=== PATIENT | female | born 1965 | race Caucasian/White ===

== ENCOUNTER → 2021-09-29 08:23 | Outpatient (BNVA) | payer OTHER, SELFPAY | PROVIDERS: PCP Internal Medicine | DX: N31.9 Neuromuscular dysfunction of bladder, unspecified (principal); R33.9 Retention of urine, unspecified | CPT/HCPCS: 51798 ==

== ENCOUNTER 2022-09-23 13:24 | Outpatient (AMB) | payer OTHER, SELFPAY ==
--- NOTE | 2022-09-23 13:21 | MHC.OFFVIS ---
Intake Intake Visit Reasons: OAB- follow up Intake Note: Patient is present for PVR Follow Up Urology Medication: Tolterodine, Tamsulosin Blood Thinner: None Post Void Residual:0 ml Caponizer Required: No Accompanied by: Self / Same As Patient Allergies Sulfa (Sulfonamide Antibiotics) [SULFA(SULFONAMIDE ANTIBIOTICS)] Allergy (Unknown, Verified 04/28/23 13:30) RASH, Chest pain HPI HPI Comments History of Present Illness Details Sharon is a pleasant female. She is a patient of . She is seen for the following urologic conditions - neurogenic bladder Neurogenic bladder Background of multiple sclerosis Overactive bladder PVR 0 Remains on estradiol vaginally Tamsulosin and tolterodine bladder emptying PFSH Medical History Elevated blood pressure reading in office with diagnosis of hypertension Fracture, fibula closed, shaft Hematuria Incomplete emptying of bladder Neurogenic bladder Neurogenic bladder Retention of urine Urgency incontinence Surgical History History of surgery Social History Patient Tobacco Use Status: Never used Tobacco Review of Systems Const Denies chills and Denies fever(s) Card Reports no additional complaints and Denies syncope Resp Denies cough GI Denies abdominal pain and Denies heartburn Reports as per HPI and Denies change in libido Neuro Denies syncope Psych Denies change in libido Endo Denies change in libido Physical Exam Const General: cooperative, healthy appearing, comfortable and no acute distress Orientation/consciousness: patient oriented x3 HEENT Face and sinus: Yes normal facial exam Mouth: moist mucous membranes Neck Neck: Yes normal visual inspection, Yes full ROM and Yes trachea midline Chest Chest palpation & inspection: normal inspection of the chest Resp Effort & Inspection: normal respiratory effort, able to speak in complete sentences and no respiratory distress GI Inspection: Yes normal to inspection Back/Spine/Pelvis Cervical Spine: normal cervical lordosis Thoracic/Lumbar Spine: thoracic and lumbar spine normal to inspection Skin General skin exam: no rashes or lesions noted Neuro General: patient oriented x3, gait normal, tone normal and moves all extremities Extrem General: Yes normal to inspection and Yes capillary refill normal Office Procedures Post Void Residual Post Residual Void Post Void Residual (PVR): 0 19732-Cydu Void Residual by ultrasound Results AMB Urinalysis, Automated UA Leukoctes 15 Lyric/uL Last Edit by Keyonna Cordova on 09/23/22 13:41 UA Nitrite Negative Last Edit by Keyonna Cordova on 09/23/22 13:41 UA Urobilinogen 0 mg/dL Last Edit by Keyonna Cordova on 09/23/22 13:41 UA Protein 15 mg/dL Last Edit by Keyonna Cordova on 09/23/22 13:41 UA pH 5.5 Last Edit by Keyonna Cordova on 09/23/22 13:41 UA Blood 0 Lenin/uL Last Edit by Keyonna Cordova on 09/23/22 13:41 UA Specific [place] 1.030 Last Edit by Keyonna Cordova on 09/23/22 13:41 UA Ketone Negative Last Edit by Keyonna Cordova on 09/23/22 13:41 UA Bilirubin 0 mg/dL Last Edit by Keyonna Cordova on 09/23/22 13:41 UA Glucose 0 mg/dL Last Edit by Keyonna Cordova on 09/23/22 13:41 Results Reviewed Results Reviewed: Laboratory Last Values Urine pH (Auto) 5.5 09/23/22 13:40 Specific [place] (Auto) 1.030 09/23/22 13:40 Urine Protein (Auto) 15 mg/dL 09/23/22 13:40 Glucose (UA)(Auto) 0 mg/dL 09/23/22 13:40 Urine Ketones (Auto) Negative 09/23/22 13:40 Urine Blood (Auto) 0 Lenin/uL 09/23/22 13:40 Urine Nitrite (Auto) Negative 09/23/22 13:40 Urine Bilirubin (Auto) 0 mg/dL 09/23/22 13:40 Urine Urobilinogen (Auto) 0 mg/dL 09/23/22 13:40 Leukocyte Esterase (Auto) 15 Lyric/uL 09/23/22 13:40 Assessment & Plan Assessment & Plan (1) Voiding dysfunction: Code(s): N39.8 - Other specified disorders of urinary system (2) Neurogenic bladder: Code(s): N31.9 - Neuromuscular dysfunction of bladder, unspecified Plan 12 month follow-up Orders: Orders AMB Urinalysis Automated 09/23/22 Z13.9 - Encounter for screening, unspecified AMB Post Void Residual by ultrasound 09/23/22 R33.9 - Retention of urine, unspecified Patient Instructions: Imaging studies, laboratory and physical exam results were discussed and reviewed in detail. No major barriers to patient understanding were identified. An opportunity to ask questions regarding the treatment plan was provided. All questions were answered. The patient expressed understanding and agreement with the above treatment plan. The patient is aware they should contact our office by phone for worsening of their current condition or the appearance of new urologic symptoms. Compliance is encouraged with any medications and followup testing that is ordered. It is a privilege to participate in the urologic care of your patient. If you have any questions or concerns regarding treatment for the above conditions, or other urologic issues, please do not hesitate to contact me. The office telephone contact is [phone]. This note is constructed using voice recognition software. While every effort has been made to ensure accuracy medical office technologist errors may have been included. Yours sincerely, Dr Mauro Reyes MD, NO[facility] - Urology Providers of Expert, Compassionate Care for the Genitourinary System Coding Level of Care Code Est Pt Level 4 (27026) Diagnoses Voiding dysfunction N39.8 Neurogenic bladder N31.9 CPT Codes Post Residual Void - PVR CPT Code: 36092-[facility] Void Residual by ultrasound ([id number])
--- OUTSIDE RECORDS SUMMARY | 2022-09-23 13:25 | XMS_ITS | Continuity of Care Document ---
:1965 Author Organization [facility] Address [address] [place] [address]- Care Team Providers Name Role Phone Ca LANGLEY, Evelyn Castano Primary Care Physician Encounter [facility] Date(s): 06/19/21 - 06/19/[address] [id number] Discharge Disposition: A-D/C Home Attending Physician: Eagle Montesinos MD Admitting Physician: Eagle Montesinos MD Referring Physician: Eagle Montesinos MD Allergies, Adverse Reactions, Alerts Substance Reaction Severity Status sulfa drugs DISORIENTATION Active Immunizations Given and Recorded Vaccine Date Status Refusal Reason SARS-CoV-2 (COVID-19) mRNA-1273 vaccine1 01/27/21 Recorde d SARS-CoV-2 (COVID-19) mRNA-1273 vaccine 01/27/21 Recorded SARS-CoV-2 (COVID-19) mRNA-1273 vaccine2 12/29/20 Recorde d SARS-CoV-2 (COVID-19) mRNA-1273 vaccine 12/29/20 Recorded 1[facility] Comment: [facility]: [facility] Medications atorvastatin 10 mg oral tablet 1 tablet = 10 mg, By Mouth, Daily, # 30 tablet, 0 Refills, Maintenance, 04/01/20 13:03:00 EDT Start Date: 04/01/20 Status: OrderedCalcium 500+D 1 tablet, By Mouth, Daily, 0 Refills, Maintenance, 04/01/20 13:05:00 EDT Start Date: 04/01/20 Status: Ordereddexlansoprazole 60 mg oral delayed release capsule 1 capsule = 60 mg, By Mouth, Daily, # 90 capsule, 2 Refills, Maintenance, 04/23/21 9:42:00 EDT, CR Capsule, [facility]/pharmacy #[id number], Partial fill upon patient request if the prescription is for a schedule II opioid drug., 169, cm, 04/18/21 10:39:00 EDT, He... Start Date: 04/23/21 Status: Orderedlevothyroxine 0.1 mg oral tablet 1 tablet = 100 mcg, By Mouth, Daily, # 30 tablet, 0 Refills, Maintenance, 04/19/17 11:58:08, Tablet Start Date: 04/19/17 Status: OrderedNasonex 50 mcg/inh nasal spray 2 sprays, Nares, Both, Daily, # 17 Gm, 1 Refills, Maintenance, 08/26/17 11:10:03, [place], 2 sprays Nares, Both Daily Start Date: 08/26/17 Status: OrderedoxyCODONE 5 mg oral tablet 5 mg, 1, tablet, By Mouth, Every 6 hours, PRN, for 5 days, # 18 tablet, Refills 0, Tot. Refills 0, Acute 06/24/21 16:13:00 EDT, as needed for pain, 06/19/21 16:13:00 EDT, Route to Pharmacy Electronically, [facility]/pharmacy #[id number], Partial fill upon patient... Start Date: 06/19/21 Stop Date: 06/24/21 Status: Orderedtamsulosin 0.4 mg oral capsule 0.4 mg, 1, capsule, By Mouth, Daily, Refills 0, Maintenance, 08/26/17 10:56:00 Start Date: 08/26/17 Status: Orderedtolterodine 4 mg oral capsule, extended release 1 capsule = 4 mg, By Mouth, Daily, # 30 capsule, 0 Refills, Maintenance, 04/01/20 13:05:00 EDT, CR Capsule Start Date: 04/01/20 Status: OrderedVitamin C 500 mg oral tablet 1 tablet = 500 mg, By Mouth, Daily, # 30 tablet, 0 Refills, Maintenance, 04/01/20 13:06:00 EDT, Tablet Start Date: 04/01/20 Status: Ordered Vital Signs Most recent to oldest 1 2 3 [Reference Range]: Height 170.18 cm 170.18 cm (06/19/21 1:15 PM) (06/06/21 5:28 PM) Weight 76.82 kg 76.82 kg (06/19/21 1:15 PM) (06/06/21 5:28 PM) Oxygen Saturation [94-100 %] 96 % 95 % 91 % (06/19/21 5:45 PM) (06/19/21 5:30 PM) *L* (06/19/21 5:15 PM) Pulse Rate [55-90 bpm] 85 bpm (06/19/21 1:15 PM) Body Mass Index [18.5-24.99] 26.53 26.53 *H* *H* (06/19/21 1:15 PM) (06/06/21 5:28 PM) Blood Pressure [90-138/55-84 133/68 mm Hg 125/64 mm Hg 122 /64 mm Hg mm Hg] (06/19/21 5:45 PM) (06/19/21 5:30 PM) (06/19/21 5:15 P M) Respiratory Rate [16-30 13 br/min 12 br/min 11 br/mi n br/min] *L* *L* *L* (06/19/21 5:45 PM) (06/19/21 5:30 PM) (06/19/21 5:15 P M) Temperature [96.8-100.4 98 DegF 98.3 DegF 98.5 Deg F DegF] (06/19/21 5:45 PM) (06/19/21 4:15 PM) (06/19/21 1:15 P M) Liters per Minute 6 L/min 6 L/min (06/19/21 4:30 PM) (06/19/21 4:15 PM) Mode of Delivery (Oxygen) Room air Room air Room a ir (06/19/21 5:45 PM) (06/19/21 5:30 PM) (06/19/21 5:15 P M) Blood pressure sites Arm, right Arm, right Arm, right (06/19/21 5:45 PM) (06/19/21 4:15 PM) (06/19/21 1:15 P M) Temperature Route Temporal Temporal Temporal (06/19/21 5:45 PM) (06/19/21 4:15 PM) (06/19/21 1:15 P M) Dry Weight 78.4 kg 76.82 kg (06/19/21 1:15 PM) (06/06/21 5:28 PM) Dry Weight Obtained Via Standing scale Patient/family stated (06/19/21 1:15 PM) (06/06/21 5:28 PM)
--- OUTSIDE RECORDS SUMMARY | 2022-09-23 13:25 | XMS_ITS | Continuity of Care Document ---
:1965 Author Organization [facility] Address [address] [place] [address] Drive [address] [place] [address]- Care Team Providers Name Role Phone Ca LANGLEY, Evelyn Castano Primary Care Physician [place] [facility] [place]18[place] - 04/25/[address] [place] [address]- Attending Physician: Eagle Montesinos MD Referring Physician: Celeste LANGLEY, Gisele Wheeler Allergies, Adverse Reactions, Alerts Substance Reaction Severity Status sulfa drugs DISORIENTATION Active Immunizations Given and Recorded Vaccine Date Status Refusal Reason SARS-CoV-2 (COVID-19) mRNA-1273 vaccine1 01/27/21 Recorde d SARS-CoV-2 (COVID-19) mRNA-1273 vaccine 01/27/21 Recorded SARS-CoV-2 (COVID-19) mRNA-1273 vaccine2 12/29/20 Recorde d SARS-CoV-2 (COVID-19) mRNA-1273 vaccine 12/29/20 Recorded 1Result Comment[facility]: [facility] Medications atorvastatin 10 mg oral tablet 1 tablet = 10 mg, By Mouth, Daily, # 30 tablet, 0 Refills, Maintenance, 04/01/20 13:03:00 EDT Start Date: 04/01/20 Status: OrderedCalcium 500+D 1 tablet, By Mouth, Daily, 0 Refills, Maintenance, 04/01/20 13:05:00 EDT Start Date: 04/01/20 Status: OrderedCarafate 1 gm/10 ml oral suspension 10 mL = 1 Gm, By Mouth, 3 times a day before meals and bedtime, # 1,200 mL, 3 Refills, Maintenance, 04/23/21 14:34:00 EDT, [facility]/pharmacy #[id number], Partial fill upon patient request if the prescription is for a schedule II opioid drug., 170.1, cm, 04/01/20... Start Date: 01/31/21 Status: Ordereddexlansoprazole 60 mg oral delayed release capsule 1 capsule = 60 mg, By Mouth, Daily, # 90 capsule, 2 Refills, Maintenance, 04/23/21 9:42:00 EDT, CR Capsule, [facility]/pharmacy #[id number], Partial fill upon patient request if the prescription is for a schedule II opioid drug., 169, cm, 04/18/21 10:39:00 EDT, He... Start Date: 04/23/21 Status: Orderedfamotidine 40 mg oral tablet 1 tablet = 40 mg, By Mouth, Daily at bedtime, # 90 tablet, 3 Refills, Maintenance, 02/20/20 16:08:00EDT, Tablet, [facility]/pharmacy #[id number] Start Date: 02/20/20 Status: Orderedhyoscyamine 0.125 mg sublingual tablet 1 tablet = 0.125 mg, Sublingual, Every 4 hours, # 30 tablet, 0 Refills, Maintenance, 04/16/20 14:15:00 EDT, Tablet, [facility]/pharmacy #[id number], 170.1, cm, 04/01/20 13:08:00 EDT, Height Start Date: 04/16/20 Status: Orderedlevothyroxine 0.1 mg oral tablet 1 tablet = 100 mcg, By Mouth, Daily, # 30 tablet, 0 Refills, Maintenance, 04/19/17 11:58:08, Tablet Start Date: 04/19/17 Status: OrderedNasonex 50 mcg/inh nasal spray 2 sprays, Nares, Both, Daily, # 17 Gm, 1 Refills, Maintenance, 08/26/17 11:10:03, [place], 2 sprays Nares, Both Daily Start Date: 08/26/17 Status: Orderedomeprazole 40 mg oral enteric coated capsule 1 capsule = 40 mg, By Mouth, Daily, # 30 capsule, 0 Refills, Maintenance, 04/01/20 13:04:00 EDT, EC Capsule Start Date: 04/01/20 Status: Orderedtamsulosin 0.4 mg oral capsule 0.4 mg, 1, capsule, By Mouth, Daily, Refills 0, Maintenance, 08/26/17 10:56:00 Start Date: 08/26/17 Status: Orderedtolterodine 4 mg oral capsule, extended release 1 capsule = 4 mg, By Mouth, Daily, # 30 capsule, 0 Refills, Maintenance, 04/01/20 13:05:00 EDT, CR Capsule Start Date: 04/01/20 Status: OrderedVitamin B12 1 tablet, By Mouth, Daily, 0 Refills, Maintenance, 04/01/20 13:05:00 EDT Start Date: 04/01/20 Status: OrderedVitamin C 500 mg oral tablet 1 tablet = 500 mg, By Mouth, Daily, # 30 tablet, 0 Refills, Maintenance, 04/01/20 13:06:00 EDT, Tablet Start Date: 04/01/20 Status: Ordered Vital Signs Most recent to oldest [Reference Range]: 1 Height 169 cm (04/18/21 10:39 AM) Weight 78.3 kg (04/18/21 10:39 AM) Pulse Rate [55-90 bpm] 93 bpm *H* (04/18/21 10:39 AM) Body Mass Index [18.5-24.99] 27.42 *H* (04/18/21 10:39 AM) Blood Pressure [90-138/55-84 mm Hg] 154/87 mm Hg *H* (04/18/21 10:39 AM) Respiratory Rate [16-30 br/min] 16 br/min (04/18/21 10:39 AM) Temperature [96.8-100.4 DegF] 98.9 DegF (04/18/21 10:39 AM) Blood pressure sites Arm, right (04/18/21 10:39 AM) Temperature Route Temporal (04/18/21 10:39 AM) Weight Obtained Via Standing scale (04/18/21 10:39 AM)
--- OUTSIDE RECORDS SUMMARY | 2022-09-23 13:25 | XMS_ITS | Continuity of Care Document ---
:1965 Author Organization [facility] Address [address] [place] [address]- Care Team Providers Name Role Phone Not on Staff, PCP Primary Care Physician Unavailable Encounter [facility] [place] Date(s): 02/27/21 - 03/29/[address] [address]- Attending Physician: Verito Pate Admitting Physician: AdmVerito bruno Referring Physician: AdmtrVerito Allergies, Adverse Reactions, Alerts Substance Reaction Severity Status sulfa drugs DISORIENTATION Active Immunizations Given and Recorded Vaccine Date Status Refusal Reason SARS-CoV-2 (COVID-19) mRNA-1273 vaccine1 01/27/21 Recorde d SARS-CoV-2 (COVID-19) mRNA-1273 vaccine 01/27/21 Recorded SARS-CoV-2 (COVID-19) mRNA-1273 vaccine2 12/29/20 Recorde d SARS-CoV-2 (COVID-19) mRNA-1273 vaccine 12/29/20 Recorded 1Result Comment: [facility] 4882Result Comment: [facility] Medications atorvastatin 10 mg oral tablet 1 [...] bedtime, # 1,200 mL, 3 Refills, Maintenance, 01/31/21 14:34:00 EDT, [facility]/pharmacy #[id number], Partial fill upon patient request if the prescription is for a schedule II opioid drug., 170.1, cm, 04/01/20... Start Date: 01/31/21 Status: Ordereddexlansoprazole 60 mg oral delayed release capsule 1 capsule = 60 mg, By Mouth, Daily, # 30 capsule, 4 Refills, Maintenance, 02/18/21 12:10:00 EDT, CR Capsule, [facility]/pharmacy #[id number], Partial fill upon patient request if the prescription is for a schedule II opioid drug., 170.1, cm, 04/01/20 13:08:00 EDT,... Start Date: 02/18/21 Status: Ordereddiclofenac sodium 75 mg oral delayed release tablet 1 tablet = 75 mg, By Mouth, 2 times a day, for 14 days, # 28 tablet, 0 Refills, Acute 04/07/21 17:00:00 EDT, 03/24/21 17:00:00 EDT, EC Tablet, [facility]/pharmacy #[id number], Partial fill upon patient request if the prescription is for a schedule II opioid drug.,... Start Date: 03/24/21 Stop Date: 04/07/21 Status: Orderedfamotidine 40 mg oral tablet 1 tablet = 40 mg, By Mouth, Daily at bedtime, # 90 tablet, 3 Refills, Maintenance, 02/20/20 16:08:00EDT, Tablet, [facility]/pharmacy #[id number] Start Date: 02/20/20 Status: Orderedhyoscyamine 0.125 mg sublingual tablet 1 tablet = 0.125 mg, Sublingual, Every 4 hours, # 30 tablet, 0 Refills, Maintenance, 04/16/20 14:15:00 EDT, Tablet, [facility]/pharmacy #[id number], 170.1, cm, 04/01/20 13:08:00 EDT, Height Start Date: 04/16/20 Status: Orderedlevothyroxine 0.1 mg oral tablet 1 tablet = 100 mcg, By Mouth, Daily, # 30 tablet, 0 Refills, Maintenance, 04/19/17 11:58:08, Tablet Start Date: 04/19/17 Status: OrderedNasonex 50 mcg/inh nasal spray 2 sprays, Nares, Both, Daily, # 17 Gm, 1 Refills, Maintenance, 08/26/17 11:10:03, [place], 2 sprays Nares, Both Daily Start Date: [...]
--- OUTSIDE RECORDS SUMMARY | 2022-09-23 13:25 | XMS_ITS | Continuity of Care Document ---
:1965 Author Organization [facility] Address Unavailable , Care Team Providers Name Role Phone Evelyn Penaloza MD Primary Care Physician [place] [facility] [place]/21 [facility] Encounter Diagnosis Symptomatic cholelithiasis (Discharge Diagnosis) - 07/04/21 Postop check (Discharge Diagnosis) - 07/04/21 Attending Physician: Benjie Hopson Referring Physician: Evelyn Peanloza MD Allergies, Adverse Reactions, Alerts Substance Reaction Severity Status sulfa drugs DISORIENTATION Active Immunizations Given and Recorded Vaccine Date Status Refusal Reason SARS-CoV-2 (COVID-19) mRNA-1273 vaccine1 01/27/21 Recorde d SARS-CoV-2 (COVID-19) mRNA-1273 vaccine 01/27/21 Recorded SARS-CoV-2 (COVID-19) mRNA-1273 vaccine2 12/29/20 Recorde d SARS-CoV-2 (COVID-19) mRNA-1273 vaccine 12/29/20 Recorded 1[facility] Medications atorvastatin 10 mg oral tablet [...] Refills, Maintenance, 04/23/21 9:42:00 EDT, CR Capsule, [facility]/pharmacy #[id number], Partial fill upon patient request if the [...] 17 Gm, 1 Refills, Maintenance, 08/26/17 11:10:03, [place], 2 sprays Nares, Both Daily Start Date: 08/26/17 Status: Orderedtamsulosin 0.4 mg oral capsule 0.4 [...] EDT, Tablet Start Date: 04/01/20 Status: Ordered Problem List Diagnosis Diagnosis Type Effective Dates Health Clinical Infor [facility] Status Service Symptomatic Discharge 07/04/21 cholelithiasis Diagnosis Postop check Discharge 07/04/21 Diagnosis Vital Signs Most recent to oldest [Reference Range]: 1 Height 170.18 cm (07/04/21 1:12 PM) Weight 77.4 kg (07/04/21 1:12 PM) Pulse Rate [55-90 bpm] 87 bpm (07/04/21 1:12 PM) Body Mass Index [18.5-24.99] 26.73 *H* (07/04/21 1:12 PM) Blood Pressure [90-138/55-84 mm Hg] 127/79 mm Hg (07/04/21 1:12 PM) Temperature [96.8-100.4 DegF] 96.5 DegF *L* (07/04/21 1:12 PM) Blood pressure sites Arm, left (07/04/21 1:12 PM) Temperature Route Temporal (07/04/21 1:12 PM) Weight Obtained Via Standing scale (07/04/21 1:12 PM)
--- OUTSIDE RECORDS SUMMARY | 2022-09-23 13:25 | XMS_ITS | Continuity of Care Document ---
:1965 Author Organization [facility] Address [address] [place] [address]- Care Team Providers Name Role Phone Misael LANGLEY, Blayne Pagan Primary Care Physician [place] [facility] [place] 11/[place]/[address] [address] [facility] Attending Physician: Evelyn Penaloza MD Allergies, Adverse Reactions, Alerts Substance Reaction Severity Status sulfa drugs DISORIENTATION Active Medications Copaxone Subcutaneous Infusion, Daily, 0 Refills, Maintenance, 04/19/17 11:57:48 Start Date: 04/19/17 Status: Orderedlevothyroxine 0.1 mg oral tablet 1 tablet = 100 mcg, By Mouth, Daily, # 30 tablet, 0 Refills, Maintenance, 04/19/17 11:58:08, Tablet Start Date: 04/19/17 Status: OrderedNasonex 50 mcg/inh nasal spray 2 sprays, Nares, Both, Daily, # 17 Gm, 1 Refills, Maintenance, 08/26/17 11:10:03, [place], 2 sprays Nares, Both Daily Start Date: 08/26/17 Status: Orderedtamsulosin 0.4 mg oral capsule 0.4 mg, 1, capsule, By Mouth, Daily, Refills 0, Maintenance, 08/26/17 10:56:00 Start Date: 08/26/17 Status: Ordered
--- OUTSIDE RECORDS SUMMARY | 2022-09-23 13:25 | XMS_ITS | Continuity of Care Document ---
:1965 Author Organization [facility] Address [address] [place] [address]- Care Team Providers Name Role Phone Blayne Douglas MD [id number] - 11[facility]07[facility] [address] Attending Physician: Blayne Douglas MD Admitting Physician: Blayne Douglas MD Referring Physician: Blayne Douglas MD Allergies, Adverse Reactions, Alerts Substance Reaction Severity Status sulfa drugs DISORIENTATION Active Medications atorvastatin 10 mg oral tablet 1 tablet = 10 mg, By Mouth, Daily, # 30 tablet, 0 Refills, Maintenance, 04/01/20 13:03:00 EDT Start Date: 04/01/20 Status: OrderedCalcium 500+D 1 tablet, By Mouth, Daily, 0 Refills, Maintenance, 04/01/20 13:05:00 EDT Start Date: 04/01/20 Status: Orderedfamotidine 40 mg oral tablet 1 tablet = 40 mg, By Mouth, Daily at bedtime, # 90 tablet, 3 Refills, Maintenance, 02/20/20 16:08:00EDT, Tablet, [facility]/pharmacy #[id number] Start Date: 02/20/20 Status: Orderedhyoscyamine 0.125 mg sublingual tablet 1 tablet = 0.125 mg, Sublingual, Every 4 hours, # 30 tablet, 0 Refills, Maintenance, 04/16/20 14:15:00 EDT, Tablet, [facility]/pharmacy #[id number], 170.1, cm, 04/01/20 13:08:00 EDT, Height Start Date: 04/16/20 Status: Orderedlevothyroxine 0.1 mg oral tablet 1 tablet = 100 mcg, By Mouth, Daily, # 30 tablet, 0 Refills, Maintenance, 04/19/17 11:58:08, Tablet Start Date: 04/19/17 Status: OrderedNasonex 50 mcg/inh nasal spray 2 sprays, Nares, Both, Daily, # 17 Gm, 1 Refills, Maintenance, 08/26/17 11:10:03, [place], 2 sprays Nares, Both Daily Start Date: [...]
--- OUTSIDE RECORDS SUMMARY | 2022-09-23 13:25 | XMS_ITS | Continuity of Care Document ---
:1965 Author Organization [facility] Address [address] [place] [address]- Care Team Providers Name Role Phone Blayne Douglas MD Primary Care Physician Encounter [facility] [place] Date(s): 07/17/20 - 08/16/20 [facility] [address] [place] [address]- Allergies, Adverse Reactions, Alerts Substance Reaction Severity [...] tablet, 3 Refills, Maintenance, 02/20/20 16:08:00EDT, Tablet, [facility]/pharmacy #[id number] Start Date: 02/20/20 Status: Orderedhyoscyamine 0.125 mg sublingual tablet 1 tablet = 0.125 mg, Sublingual, Every 4 hours, # 30 tablet, 0 Refills, Maintenance, 04/16/20 14:15:00 EDT, Tablet, [facility]/pharmacy #[id number], 170.1, cm, 04/01/20 13:08:00 EDT, Height Start Date: 04/16/20 Status: Orderedlevothyroxine 0.1 mg oral tablet 1 tablet = 100 mcg, By Mouth, Daily, # 30 tablet, 0 Refills, Maintenance, 04/19/17 11:58:08, Tablet Start Date: 04/19/17 Status: OrderedNasonex 50 mcg/inh nasal spray 2 sprays, Nares, Both, Daily, # 17 Gm, 1 Refills, Maintenance, 08/26/17 11:10:03, [place], 2 sprays Nares, Both Daily Start Date: [...]
--- OUTSIDE RECORDS SUMMARY | 2022-09-23 13:25 | XMS_ITS | Continuity of Care Document ---
:1965 Author Organization [facility] Address [address] [place] [phone]- Care Team Providers Name Role Phone Blayne Douglas MD Primary Care Physician Encounter [facility] Date(s): 07/17/20 - 08/16/20 [facility] [address] [place] [address]- Attending Physician: Verito Pate Admitting Physician: Verito Pate Referring Physician: AdmtrVerito Allergies, Adverse Reactions, Alerts [...] tablet, 3 Refills, Maintenance, 02/20/20 16:08:00EDT, Tablet, [facility]/pharmacy #[id number] Start Date: 02/20/20 Status: Orderedhyoscyamine 0.125 mg sublingual tablet 1 tablet = 0.125 mg, Sublingual, Every 4 hours, # 30 tablet, 0 Refills, Maintenance, 04/16/20 14:15:00 EDT, Tablet, [facility]/pharmacy #[id number], 170.1, cm, 04/01/20 13:08:00 EDT, Height Start Date: 04/16/20 Status: Orderedlevothyroxine 0.1 mg oral tablet 1 tablet = 100 mcg, By Mouth, Daily, # 30 tablet, 0 Refills, Maintenance, 04/19/17 11:58:08, Tablet Start Date: 04/19/17 Status: OrderedNasonex 50 mcg/inh nasal spray 2 sprays, Nares, Both, Daily, # 17 Gm, 1 Refills, Maintenance, 08/26/17 11:10:03, [place], 2 sprays Nares, Both Daily Start Date: [...]
--- OUTSIDE RECORDS SUMMARY | 2022-09-23 13:25 | XMS_ITS | Continuity of Care Document ---
:1965 Author Organization [facility] Address [address] [place] [address]- Care Team Providers Name Role Phone Blayne Douglas MD Primary Care Physician [place] [facility] [place] [id number] Date(s): 02/12/20 - 03/13/20 [facility] [address] [place] [address]- [facility] Attending Physician: Verito Pate Admitting Physician: AdmVerito bruno Referring Physician: AdmtrVerito Allergies, Adverse Reactions, Alerts Substance Reaction Severity Status sulfa drugs DISORIENTATION Active Medications [place] Subcutaneous Infusion, Daily, 0 Refills, Maintenance, 04/19/17 11:57:48 Start Date: 04/19/17 Status: Orderedfamotidine 40 mg oral tablet 1 tablet = 40 mg, By Mouth, Daily at bedtime, # 90 tablet, 3 Refills, Maintenance, 02/20/20 16:08:00EDT, Tablet, [facility]/pharmacy #[id number] Start Date: 02/20/20 Status: Orderedlevothyroxine 0.1 mg oral tablet 1 tablet = 100 mcg, By Mouth, Daily, # 30 tablet, 0 Refills, Maintenance, 04/19/17 11:58:08, Tablet Start Date: 04/19/17 Status: OrderedNasonex 50 mcg/inh nasal spray 2 sprays, Nares, Both, Daily, # 17 Gm, 1 Refills, Maintenance, 08/26/17 11:10:03, [place], 2 sprays Nares, Both Daily Start Date: 08/26/17 Status: Orderedtamsulosin 0.4 mg oral capsule 0.4 mg, 1, capsule, By Mouth, Daily, Refills 0, Maintenance, 08/26/17 10:56:00 Start Date: 08/26/17 Status: Ordered
--- OUTSIDE RECORDS SUMMARY | 2022-09-23 13:25 | XMS_ITS | Continuity of Care Document ---
:1965 Author Organization [facility] Address [address] [place] [address]- Care Team Providers Name Role Phone Blayne Douglas MD Primary Care Physician [place] [facility] [place] Date(s): 03/17/21 - 04/16/21 [facility] [address] [place] [id number] Allergies, Adverse Reactions, Alerts Substance Reaction Severity Status sulfa drugs DISORIENTATION Active Immunizations Given and Recorded Vaccine Date Status Refusal Reason SARS-CoV-2 (COVID-19) mRNA-1273 vaccine1 01/27/21 Recorde d SARS-CoV-2 (COVID-19) mRNA-1273 vaccine 01/27/21 Recorded SARS-CoV-2 (COVID-19) mRNA-1273 vaccine2 12/29/20 Recorde d SARS-CoV-2 (COVID-19) mRNA-1273 vaccine 12/29/20 Recorded 1Result Comment: PRINCE 4882Result Comment: [facility] Medications atorvastatin 10 mg oral tablet 1 [...] mL, 3 Refills, Maintenance, 01/31/21 14:34:00 EDT, [facility]/pharmacy #[id number], Partial fill upon patient request if the prescription is for a schedule II opioid drug., 170.1, cm, 04/01/20... Start Date: 01/31/21 Status: Ordereddexlansoprazole 60 mg oral delayed release capsule 1 capsule = 60 mg, By Mouth, Daily, # 30 capsule, 4 Refills, Maintenance, 02/18/21 12:10:00 EDT, CR Capsule, [facility]/pharmacy #[id number], Partial fill upon patient request if the prescription is for a schedule II opioid drug., 170.1, cm, 04/01/20 13:08:00 EDT,... Start Date: 02/18/21 Status: Orderedfamotidine 40 mg oral tablet 1 tablet = 40 mg, By Mouth, Daily at bedtime, # 90 tablet, 3 Refills, Maintenance, 02/20/20 16:08:00EDT, Tablet, [facility]/pharmacy #[id number] Start Date: 02/20/20 Status: Orderedhyoscyamine 0.125 mg sublingual tablet 1 tablet = 0.125 mg, Sublingual, Every 4 hours, # 30 tablet, 0 Refills, Maintenance, 04/16/20 14:15:00 EDT, Tablet, [facility]/pharmacy #[id number], 170.1, cm, 04/01/20 13:08:00 EDT, Height Start Date: 04/16/20 Status: Orderedlevothyroxine 0.1 mg oral tablet 1 tablet = 100 mcg, By Mouth, Daily, # 30 tablet, 0 Refills, Maintenance, 04/19/17 11:58:08, Tablet Start Date: 04/19/17 Status: OrderedNasonex 50 mcg/inh nasal spray 2 sprays, Nares, Both, Daily, # 17 Gm, 1 Refills, Maintenance, 08/26/17 11:10:03, [place], 2 sprays Nares, Both Daily Start Date: [...]
--- OUTSIDE RECORDS SUMMARY | 2022-09-23 13:25 | XMS_ITS | Continuity of Care Document ---
:1965 Author Organization [facility] Address Unavailable , Care Team Providers Name Role Phone aC LANGLEY, Evelyn Castano Primary Care Physician Encounter [facility] Date(s): 07/04/21 - 08/03/21 [facility] Attending Physician: Verito Pate Admitting Physician: AdmVerito [...] Recorded 1Result Comment: PRINCE 4882Result Comment: [facility] Medications atorvastatin 10 mg oral tablet 1 [...] Refills, Maintenance, 04/23/21 9:42:00 EDT, CR Capsule, [facility]/pharmacy #[id number], Partial fill upon patient request if the [...] 17 Gm, 1 Refills, Maintenance, 08/26/17 11:10:03, [place], 2 sprays Nares, Both Daily Start Date: [...]
--- OUTSIDE RECORDS SUMMARY | 2022-09-23 13:25 | XMS_ITS | Continuity of Care Document ---
:[address] [facility] Address [address] [place] [address]- Care Team Providers Name Role Phone Blayne Douglas MD [id number] - 12[facility]21[facility] [address] Attending Physician: Blayne Douglas MD Admitting Physician: [...] tablet, 3 Refills, Maintenance, 02/20/20 16:08:00EDT, Tablet, [facility]/pharmacy #[id number] Start Date: 02/20/20 Status: Orderedhyoscyamine 0.125 mg sublingual tablet 1 tablet = 0.125 mg, Sublingual, Every 4 hours, # 30 tablet, 0 Refills, Maintenance, 04/16/20 14:15:00 EDT, Tablet, [facility]/pharmacy #[id number], 170.1, cm, 04/01/20 13:08:00 EDT, Height Start Date: 04/16/20 Status: Orderedlevothyroxine 0.1 mg oral tablet 1 tablet = 100 mcg, By Mouth, Daily, # 30 tablet, 0 Refills, Maintenance, 04/19/17 11:58:08, Tablet Start Date: 04/19/17 Status: OrderedNasonex 50 mcg/inh nasal spray 2 sprays, Nares, Both, Daily, # 17 Gm, 1 Refills, Maintenance, 08/26/17 11:10:03, [place], 2 sprays Nares, Both Daily Start Date: [...]
--- OUTSIDE RECORDS SUMMARY | 2022-09-23 13:25 | XMS_ITS | Continuity of Care Document ---
:1965 Author Organization Address [address] [place] [address]- Care Team Providers Name Role Phone Not on Staff, PCP Primary Care Physician Unavailable Encounter [facility] [id number] Date(s): 03/24/21 - 03/24/[address] [address]- Discharge Disposition: A-D/C Home Attending Physician: Sheldon Marquez MD Admitting Physician: Sheldon Marquez MD Referring Physician: Not on Staff, Referring MD Allergies, Adverse Reactions, Alerts Substance Reaction Severity Status sulfa drugs DISORIENTATION Active Immunizations Given and Recorded Vaccine Date Status Refusal Reason SARS-CoV-2 (COVID-19) mRNA-1273 vaccine1 01/27/21 Recorde d SARS-CoV-2 (COVID-19) mRNA-1273 vaccine 01/27/21 Recorded SARS-CoV-2 (COVID-19) mRNA-1273 vaccine2 12/29/20 Recorde d SARS-CoV-2 (COVID-19) mRNA-1273 vaccine 12/29/20 Recorded 1Result Comment: PRINCE 4882Result Comment: PR[facility]CE [facility] Medications atorvastatin 10 [...] mL, 3 Refills, Maintenance, 01/31/21 14:34:00 EDT, [facility]/pharmacy #[id number], Partial fill upon patient request if the prescription is for a schedule II opioid drug., 170.1, cm, 04/01/20... Start Date: 01/31/21 Status: Ordereddexlansoprazole 60 mg oral delayed release capsule 1 capsule = 60 mg, By Mouth, Daily, # 30 capsule, 4 Refills, Maintenance, 02/18/21 12:10:00 EDT, CR Capsule, [facility]/pharmacy #[id number], Partial fill upon patient request if the prescription is for a schedule II opioid drug., 170.1, cm, 04/01/20 13:08:00 EDT,... Start Date: 02/18/21 Status: Ordereddiclofenac sodium 75 mg oral delayed release tablet 1 tablet = 75 mg, By Mouth, 2 times a day, for 14 days, # 28 tablet, 0 Refills, Acute 04/07/21 17:00:00 EDT, 03/24/21 17:00:00 EDT, EC Tablet, [facility]/pharmacy #[id number], Partial fill upon patient request if the prescription is for a schedule II opioid drug.,... Start Date: 03/24/21 Stop Date: 04/07/21 Status: Orderedfamotidine 40 mg oral tablet 1 tablet = 40 mg, By Mouth, Daily at bedtime, # 90 tablet, 3 Refills, Maintenance, 02/20/20 16:08:00EDT, Tablet, [facility]/pharmacy #[id number] Start Date: 02/20/20 Status: Orderedhyoscyamine 0.125 mg sublingual tablet 1 tablet = 0.125 mg, Sublingual, Every 4 hours, # 30 tablet, 0 Refills, Maintenance, 04/16/20 14:15:00 EDT, Tablet, [facility]/pharmacy #[id number], 170.1, cm, 04/01/20 13:08:00 EDT, Height Start Date: 04/16/20 Status: Orderedlevothyroxine 0.1 mg oral tablet 1 tablet = 100 mcg, By Mouth, Daily, # 30 tablet, 0 Refills, Maintenance, 04/19/17 11:58:08, Tablet Start Date: 04/19/17 Status: OrderedNasonex 50 mcg/inh nasal spray 2 sprays, Nares, Both, Daily, # 17 Gm, 1 Refills, Maintenance, 08/26/17 11:10:03, [place], 2 sprays Nares, Both Daily Start Date: [...] EDT, Tablet Start Date: 04/01/20 Status: Ordered Results Orders for Microbiology Reports Name Date Urine Culture (URINE CULTURE) 03/24/21 Microbiology Reports TEST:Urine Culture STATUS:Unauthenticated BODY SITE: SOURCE:URINE COLLECTED DATE/TIME:03/24/21 12:33 PMUrine Culture SPECIMEN DESCRIPTION : URINE SPECIAL REQUESTS : NONE Reflexed from [id number] REPORT STATUS : PRELIMINARY REPORT Radiology Reports Exam Date Time Procedure Performing Provider Status 03/24/21 1:02 PM Chest 2 Views Frontal and Lat Azul Feliciano; Auth (Verified) Notes:(Chest 2 Views Frontal and Lat) Reason For Exam: Shortness of Breath RESULT: Chest 2 Views Frontal and Lat Chest 2 Views Frontal and Lat Hx of Present Illness: Pt with left upper abdominal under rib pain since wednesday. Worse with coughingand breathing. denies fever, chills, nausea or vomiting. C o SOB.; Reason: Shortness of Breath; Clinical Question(s): Pneumonia COMPARISON: None. FINDINGS: LINES AND TUBES: None. LUNGS AND PLEURA: Low lung volumes with mild basilar vascular crowding. Lungs are otherwise clear with no consolidation. No pleural effusion. No pneumothorax. HEART, MEDIASTINUM AND MELIZA: Heart is normal in size. Normal upper mediastinal and hilar contour. BONES AND SOFT TISSUES: No acute abnormality. Mild degenerative changes in the shoulders. IMPRESSION: Low lung volumes. Otherwise no acute abnormality. WSN: [id number] Ordering Physician: Sheldon Marquez Dictated By: Ron Roque MD Dictated Date/Time: 03/24/21 1:15 pm Reviewed By: Ron Roque MD Signed By: Ron Roque MD Signed Date/Time: 03/24/21 1:15 pm Transcribed By: JOHN Transcribed Date/Time: 03/24/21 1:11 pm Vital Signs Most recent to oldest 1 2 3 [Reference Range]: Height 169 cm 169 cm 169 cm (03/24/21 4:56 PM) (03/24/21 3:14 PM) (03/24/21 12: 08 PM) Weight 78.7 kg 78.7 kg 78.7 kg (03/24/21 4:56 PM) (03/24/21 3:14 PM) (03/24/21 12: 08 PM) Oxygen Saturation [94-100 %] 100 % 99 % 100 % (03/24/21 4:56 PM) (03/24/21 3:14 PM) (03/24/21 12: 08 PM) Pulse Rate [55-90 bpm] 86 bpm 67 bpm 82 bpm (03/24/21 4:56 PM) (03/24/21 3:14 PM) (03/24/21 12: 08 PM) Body Mass Index [18.5-24.99] 27.56 27.56 *H* *H* (03/24/21 4:56 PM) (03/24/21 3:14 PM) Blood Pressure [90-138/55-84 126/88 mm Hg 111/67 mm Hg 140 /81 mm Hg mm Hg] (03/24/21 4:56 PM) (03/24/21 3:14 PM) *H* (03/24/21 12:08 P M) Respiratory Rate [16-30 18 br/min 16 br/min 18 br/mi n br/min] (03/24/21 4:56 PM) (03/24/21 3:14 PM) (03/24/21 12: 08 PM) Temperature [96.8-100.4 DegF] 95.7 DegF *L* (03/24/21 12:08 PM) Mode of Delivery (Oxygen) Room air Room air Room a ir (03/24/21 4:56 PM) (03/24/21 3:14 PM) (03/24/21 12: 08 PM) Blood pressure sites Arm, left Arm, right Arm, right (03/24/21 4:56 PM) (03/24/21 3:14 PM) (03/24/21 12: 08 PM) Temperature Route Tympanic (03/24/21 12:08 PM) Dry Weight 78.7 kg 78.7 kg 78.7 kg (03/24/21 4:56 PM) (03/24/21 3:14 PM) (03/24/21 12: 08 PM)
--- OUTSIDE RECORDS SUMMARY | 2022-09-23 13:26 | XMS_ITS | Continuity of Care Document ---
:1965 Author Organization [facility] Address [address] [place] [phone]- Care Team Providers Name Role Phone Blayne Douglas MD Primary Care Physician [place] [facility] [place] Date(s): 12/05/20 - 04/15/[address] [address] Discharge Disposition: A-D/C Home Attending Physician: Blayne Douglas MD Admitting Physician: Blayne Douglas MD Referring Physician: Salvador CID, Adamaris Rob Allergies, Adverse Reactions, Alerts Substance Reaction Severity [...] mL, 3 Refills, Maintenance, 04/23/21 14:34:00 EDT, [facility]/pharmacy #[id number], Partial fill upon patient request if the prescription is for a schedule II opioid drug., 170.1, cm, 04/01/20... Start Date: 01/31/21 Status: Ordereddexlansoprazole 60 mg oral delayed release capsule 1 capsule = 60 mg, By Mouth, Daily, # 30 capsule, 4 Refills, Maintenance, 02/18/21 12:10:00 EDT, CR Capsule, [facility]/pharmacy #[id number], Partial fill upon patient request if the prescription is for a schedule II opioid drug., 170.1, cm, 04/01/20 13:08:00 EDT,... Start Date: 02/18/21 Status: Orderedfamotidine 40 mg oral tablet 1 tablet = 40 mg, By Mouth, Daily at bedtime, # 90 tablet, 3 Refills, Maintenance, 02/20/20 16:08:00EDT, Tablet, [facility]/pharmacy #[id number] Start Date: 02/20/20 Status: Orderedhyoscyamine 0.125 mg sublingual tablet 1 tablet = 0.125 mg, Sublingual, Every 4 hours, # 30 tablet, 0 Refills, Maintenance, 04/16/20 14:15:00 EDT, Tablet, [facility]/pharmacy #[id number], 170.1, cm, 04/01/20 13:08:00 EDT, Height Start Date: 04/16/20 Status: Orderedlevothyroxine 0.1 mg oral tablet 1 tablet = 100 mcg, By Mouth, Daily, # 30 tablet, 0 Refills, Maintenance, 04/19/17 11:58:08, Tablet Start Date: 04/19/17 Status: OrderedNasonex 50 mcg/inh nasal spray 2 sprays, Nares, Both, Daily, # 17 Gm, 1 Refills, Maintenance, 08/26/17 11:10:03, [place], 2 sprays Nares, Both Daily Start Date: [...]
--- OUTSIDE RECORDS SUMMARY | 2022-09-23 13:26 | XMS_ITS | Continuity of Care Document ---
:1965 Author Organization [facility] Address [address] [facility], [address] [address]- Care Team Providers Name Role Phone Ca LANGLEY, Evelyn Castano Primary Care Physician Encounter 12/17/21 - 12/24/21 [facility] [address], [address] [address]- Attending Physician: Adamaris Franco CNM Admitting Physician: Adamaris Franco CNM Referring Physician: Adamaris Franco CNM Allergies, Adverse Reactions, Alerts Substance Reaction Severity [...] Refills, Maintenance, 04/23/21 9:42:00 EDT, CR Capsule, [facility]/pharmacy #[id number], Partial fill upon patient request if the prescription is for a schedule II opioid drug., 169, cm, 04/18/21 10:39:00 EDT, Bogdan. Start Date: 04/23/21 Status: Orderedlevothyroxine 0.1 mg oral tablet 1 tablet = 100 mcg, By Mouth, Daily, # 30 tablet, 0 Refills, Maintenance, 04/19/17 11:58:08, Tablet Start Date: 04/19/17 Status: OrderedNasonex 50 mcg/inh nasal spray 2 sprays, Nares, Both, Daily, # 17 Gm, 1 Refills, Maintenance, 08/26/17 11:10:03, [place], 2 sprays Nares, Both Daily Start Date: [...]
== END 2022-09-23 13:56 | disposition home or self-care (01) ==
LOC: HO.HUSH 13:24
PROVIDERS: PCP Internal Medicine; Visit Provider Urology
DX: N39.8 Other specified disorders of urinary system (principal); N31.9 Neuromuscular dysfunction of bladder, unspecified
CPT/HCPCS: 99214

== ENCOUNTER → 2022-09-23 13:24 | Outpatient (BNVA) | payer OTHER, SELFPAY | PROVIDERS: PCP Internal Medicine; Visit Provider Urology | DX: N39.8 Other specified disorders of urinary system (principal); N31.9 Neuromuscular dysfunction of bladder, unspecified | CPT/HCPCS: 51798 ==

== ENCOUNTER 2023-04-28 13:11 | Outpatient (AMB) | payer OTHER, SELFPAY ==
--- NOTE | 2023-04-28 12:40 | A.OFFVIS_ITS ---
Intake Intake Visit Reasons: Recurrent UTI's Intake Note: Patient presents for recurrent uti's Urology Medications: tamsulosin, tolterodine Blood Thinner: none Bladder scan PVR - 56 mL Trade Union Secretary Required: No Accompanied by: Self / Same As Patient Allergies Sulfa (Sulfonamide Antibiotics) [SULFA(SULFONAMIDE ANTIBIOTICS)] Allergy (Unknown, Verified 04/28/23 13:30) RASH, Chest pain HPI HPI Comments History of Present Illness Details Sharon is a 57-year-old female who presents to the clinic today for recurrent UTIs. 04/28/23-- The patient has a significant history for multiple sclerosis. She was last seen in the office on 09/23/[address] Reyes. She is followed for recurrent UTIs. She reports that she has been getting UTIs associated with sexual intercourse. She has had voiding dysfunction including hesitancy and urgency. She has been prescribed tamsulosin and tolterodine in the past. She takes both the medications currently. She has been using Vagifem vaginal suppositories prescribed by her PLASTIC MOULD MAKER. Results reviewed ? UA ? Leukocytes: 2+ . Blood: Negative. Bladder scan PVR - 56 mL Plan: We are going to obtain a kidney and bladder ultrasound. Continue taking tamsulosin and tolterodine. Recommended a trial of low-dose antibiotic to use after intercourse. Prescribed Macrobic 100 mg. Discussed voiding before and after intercourse and following good hygiene. Follow up in 8 weeks via telehealth to review the ultrasound results. [facility] Medical History Elevated blood pressure reading in office with diagnosis of hypertension Fracture, fibula closed, shaft Hematuria Incomplete emptying of bladder Neurogenic bladder Neurogenic bladder Retention of urine Urgency incontinence Surgical History History of surgery Social History Patient Tobacco Use Status: Never used Tobacco Review of Systems Const All systems reviewed & are unremarkable except as noted in HPI and below Reports no additional complaints Eyes Reports no additional complaints ENT Reports no additional complaints Card Denies dyspnea Resp Denies cough and Denies dyspnea GI Reports no additional complaints Reports no additional complaints Musc Reports no additional complaints Skin/Breast Denies rash and Denies unusual bruising Neuro Reports no additional complaints Psych Reports no additional complaints Endo Reports no additional complaints Rodrigo/Lymph Reports no additional complaints Aller/Immun Reports no additional complaints Physical Exam Const General: cooperative, healthy appearing and no acute distress Orientation/consciousness: patient oriented x3 HEENT Head: Yes normal to inspection, Yes normocephalic and Yes atraumatic Eyes Conjunctivae: conjunctivae normal Neck Neck: Yes normal visual inspection and Yes trachea midline Chest Chest palpation & inspection: normal inspection of the chest Resp Effort & Inspection: normal respiratory effort Cardio Rate: regular rate GI Inspection: Yes normal to inspection Skin General skin exam: no rashes or lesions noted Neuro General: patient oriented x3 Extrem General: No edema Psych Appearance: grossly normal Office Procedures Post Void Residual Post Residual Void Post Void Residual (PVR): 56 [id number] Void Residual by ultrasound Results AMB Urinalysis, Automated UA Leukoctes 125 Lyric/uL Last Edit by [employer] on 04/28/23 13:44 UA Nitrite Last Edit by [employer] on 04/28/23 13:44 UA Urobilinogen 0.2 mg/dL Last Edit by [employer] on 04/28/23 13:44 UA Protein 0 mg/dL Last Edit by [employer] on 04/28/23 13:44 UA pH 6.0 Last Edit by [employer] on 04/28/23 13:44 UA Blood 0 Lenin/uL Last Edit by [employer] on 04/28/23 13:44 UA Specific [place] 1.020 Last Edit by [employer] on 04/28/23 13:44 UA Ketone Last Edit by [employer] on 04/28/23 13:44 UA Bilirubin 0 mg/dL Last Edit by [employer] on 04/28/23 13:44 UA Glucose 0 mg/dL Last Edit by [employer] on 04/28/23 13:44 Results Reviewed Results Reviewed: Laboratory Last Values Urine pH (Auto) 6.0 04/28/23 13:32 Specific [place] (Auto) 1.020 04/28/23 13:32 Urine Protein (Auto) 0 mg/dL 04/28/23 13:32 Glucose (UA)(Auto) 0 mg/dL 04/28/23 13:32 Urine Blood (Auto) 0 Lenin/uL 04/28/23 13:32 Urine Bilirubin (Auto) 0 mg/dL 04/28/23 13:32 Urine Urobilinogen (Auto) 0.2 mg/dL 04/28/23 13:32 Leukocyte Esterase (Auto) 125 Lyric/uL 04/28/23 13:32 Assessment & Plan Assessment & Plan (1) Neurogenic bladder: Code(s): N31.9 - Neuromuscular dysfunction of bladder, unspecified (2) Recurrent urinary tract infection: Code(s): N39.0 - Urinary tract infection, site not specified (3) Multiple sclerosis: Code(s): G35 - Multiple sclerosis (4) Voiding dysfunction: Code(s): N39.8 - Other specified disorders of urinary system (5) Vaginal atrophy: Code(s): N95.2 - Postmenopausal atrophic vaginitis Plan We are going to obtain a kidney and bladder ultrasound. Continue taking tamsulosin and tolterodine. Recommended a trial of low-dose antibiotic to use after intercourse. Prescribed Macrobic 100 mg. Discussed voiding before and after intercourse and following good hygiene. Follow up in 8 weeks via telehealth to review the ultrasound results. Orders: Orders US retroperitoneal comp Today N31.9 - Neuromuscular dysfunction of bladder, unspecified, N39.0 - Urinary tract infection, site not specified AMB Urinalysis Automated Today Z13.9 - Encounter for screening, unspecified AMB Post Void Residual by ultrasound Today R33.9 - Retention of urine, unspecified Medications: New nitrofurantoin monohyd/m-cryst 100 mg (Macrobid) must administer with a meal/food 100 mg PO .qhs 30 caps 2RF use after intercourse as directed Patient Instructions: The patient had an opportunity to ask questions regarding treatment plan. All questions were answered. Imaging, Laboratory studies and physical exam results were discussed and reviewed in detail. No major barriers to understanding were identified. The patient expressed understanding and agreement with the above treatment plan. The patient is aware they should contact our office by phone for worsening of their current condition or the appearance of new symptoms. Compliance is encouraged with any medications and followup testing that is ordered. It is a privilege to be allowed the opportunity to participate in the urologic care of your patient. If you have any questions or concerns regarding treatment for the above conditions please do not hesitate to contact me. The office telephone contact is [phone]. This note is constructed in part using voice recognition software. While every effort has been made to ensure accuracy machinist instructor errors may have been included. Yours sincerely, Rashawn Motley MD Coding Level of Care Code Est Pt Level 4 (25482) Diagnoses Neurogenic bladder N31.9 Recurrent urinary tract infection N39.0 Multiple sclerosis G35 Voiding dysfunction N39.8 Vaginal atrophy N95.2 CPT Codes Post Residual Void - PVR CPT Code: 04213-Lxyx Void Residual by ultrasound ([id number])
== END 2023-04-28 14:21 | disposition home or self-care (01) ==
PROVIDERS: PCP Internal Medicine; Visit Provider Urology
DX: N31.9 Neuromuscular dysfunction of bladder, unspecified (principal); N39.0 Urinary tract infection, site not specified; G35 Multiple sclerosis; N39.8 Other specified disorders of urinary system; N95.2 Postmenopausal atrophic vaginitis
CPT/HCPCS: 99214

== ENCOUNTER → 2023-04-28 13:11 | Outpatient (BNVA) | payer OTHER, SELFPAY | PROVIDERS: PCP Internal Medicine; Visit Provider Urology | DX: N39.0 Urinary tract infection, site not specified (principal); R33.9 Retention of urine, unspecified; N31.9 Neuromuscular dysfunction of bladder, unspecified; N39.8 Other specified disorders of urinary system; N95.2 Postmenopausal atrophic vaginitis; G35 Multiple sclerosis; Z79.899 Other long term (current) drug therapy | CPT/HCPCS: 51798 ==

== ENCOUNTER 2023-06-02 09:33 | Outpatient (REF) | payer OTHER, SELFPAY ==
--- NOTE | ~2023-06-02 | US_ITS ---
EXAMINATION: US RETROPERITONEAL COMPLETE (RENAL) CLINICAL INFORMATION: Neuromuscular dysfunction of the bladder, unspecified. COMPARISON: Renal ultrasound 11/29/2018. TECHNIQUE: Real-time imaging of the kidneys and bladder. FINDINGS: RIGHT KIDNEY: 11.5 x 6.0 x 5.8 cm (SAG x AP x TRV). The kidney is normal in size, contour, and echogenicity. Renal cortical thickness is normal. No calculi or focal parenchymal lesions. No hydronephrosis. LEFT KIDNEY: 11.9 x 5.7 x 5.0 cm (SAG x AP x TRV). The kidney is normal in size, contour, and echogenicity. Renal cortical thickness is normal. No calculi or focal parenchymal lesions. No hydronephrosis. BLADDER: Well distended and normal. Bilateral ureteral jets are demonstrated. Prevoid bladder volume is 299 mL. Postvoid bladder volume is 39 mL. US/US retroperitoneal comp IMPRESSION: Unremarkable examination.
== END 2023-06-02 09:34 | disposition home or self-care (01) ==
LOC: HO.US 09:33
PROVIDERS: PCP Internal Medicine; Visit Provider Urology
DX: N31.9 Neuromuscular dysfunction of bladder, unspecified (principal); N39.0 Urinary tract infection, site not specified
CPT/HCPCS: 76770

== ENCOUNTER 2023-06-24 08:32 | Outpatient (AMB) | payer OTHER, SELFPAY ==
--- NOTE | 2023-06-24 08:32 | A.OFFVIS_ITS ---
Intake Intake Visit Reasons: 8w/US Intake Note: Patient presents today for a follow-up on US Results, completed on 06/02/2023 Meds- Estradiol Allergies to Antibiotic- Sulfa Blood Thinner- None Graves Registration Specialist Required: No Allergies Sulfa (Sulfonamide Antibiotics) [SULFA(SULFONAMIDE ANTIBIOTICS)] Allergy (Unknown, Verified 06/24/23 08:33) RASH, Chest pain HPI HPI Comments History of Present Illness Details Sharon is a 57-year-old female who presents today via Tele-health visit for a follow-up. 06/24/2023? She is followed today for US results. She was last seen by me on 04/28/2023 for recurrent urinary tract infections. Kidney and bladder ultrasound was ordered at that time. The patient was advised to continue taking tamsulosin and tolterodine, she was recommended a trial of low-dose antibiotic to use after intercourse at that time. Macrobic 100 mg was prescribed, and she was advised to follow up in 8 weeks via telehealth to review the ultrasound results during that time. Patient states that toady she was tested positive for COVID. She has been using Macrobid post intercourse and has found that she has not had any urinary tract infection symptoms while using the antibiotic as instructed. I reviewed the retroperitoneum US results from 06/02/2023 revealed no calculi or focal parenchymal lesions. No hydronephrosis. Review of charts: Last visit: 04/28/23-- The patient has a significant history for multiple sclerosis. She was last seen in the office on 09/23/[address] Reyes. She is followed for recurrent UTIs. She reports that she has been getting UTIs associated with sexual intercourse. She has had voiding dysfunction including hesitancy and urgency. She has been prescribed tamsulosin and tolterodine in the past. She takes both the medications currently. She has been using Vagifem vaginal suppositories prescribed by her FUR CLIPPER. Results reviewed ? UA ? Leukocytes: 2+ . Blood: Negative. Bladder scan PVR - 56 mL 06/24/2023: Plan: Patient has scheduled a follow-up with Dr. Reyes in 09/2023. Continue Macrobid post intercourse. Continue tamsulosin 0.4 mg, and tolterodine 4 mg. [facility]LY [facility], [facility] Medical History Elevated blood pressure reading in office with diagnosis of hypertension Fracture, fibula closed, shaft Hematuria Incomplete emptying of bladder Neurogenic bladder Neurogenic bladder Retention of urine Urgency incontinence Surgical History History of surgery Social History Patient Tobacco Use Status: Never used Tobacco Review of Systems Const All systems reviewed & are unremarkable except as noted in HPI and below Reports no additional complaints Eyes Reports no additional complaints ENT Reports no additional complaints Card Denies dyspnea Resp Denies cough and Denies dyspnea GI Reports no additional complaints Reports no additional complaints Musc Reports no additional complaints Skin/Breast Denies rash and Denies unusual bruising Neuro Reports no additional complaints Psych Reports no additional complaints Endo Reports no additional complaints Rodrigo/Lymph Reports no additional complaints Aller/Immun Reports no additional complaints Results Reviewed Results Reviewed: Date of Service: 06/02/23 EXAMINATION:? US RETROPERITONEAL COMPLETE (RENAL) CLINICAL INFORMATION: Neuromuscular dysfunction of the bladder, unspecified. COMPARISON:? Renal ultrasound 11/29/2018. FINDINGS: RIGHT KIDNEY: 11.5 x 6.0 x 5.8 cm (SAG x AP x TRV). The kidney is normal in size, contour, and echogenicity. Renal cortical thickness is normal. No calculi or focal parenchymal lesions. No hydronephrosis. LEFT KIDNEY: 11.9 x 5.7 x 5.0 cm (SAG x AP x TRV). The kidney is normal in size, contour, and echogenicity. Renal cortical thickness is normal. No calculi or focal parenchymal lesions. No hydronephrosis. BLADDER: Well distended and normal. Bilateral ureteral jets are demonstrated. Prevoid bladder volume is 299 mL. Postvoid bladder volume is 39 mL. IMPRESSION:? Unremarkable examination. Assessment & Plan Assessment & Plan (1) Neurogenic bladder: Code(s): N31.9 - Neuromuscular dysfunction of bladder, unspecified (2) Recurrent urinary tract infection: Code(s): N39.0 - Urinary tract infection, site not specified (3) Multiple sclerosis: Code(s): G35 - Multiple sclerosis (4) Voiding dysfunction: Code(s): N39.8 - Other specified disorders of urinary system (5) Vaginal atrophy: Code(s): N95.2 - Postmenopausal atrophic vaginitis Plan Patient has scheduled follow-up with Dr. Reyes in 09/2023. Continue Macrobid post intercourse. Continue tamsulosin 0.4 mg, and tolterodine 4 mg. Patient Instructions: The patient had an opportunity to ask questions regarding treatment plan. All questions were answered. Imaging, Laboratory studies and physical exam results were discussed and reviewed in detail. No major barriers to understanding were identified. The patient expressed understanding and agreement with the above treatment plan.? ? ? The patient is aware they should contact our office by phone for worsening of their current condition or the appearance of new symptoms. Compliance is encouraged with any medications and followup testing that is ordered.? ? ? It is a privilege to be allowed the opportunity to participate in the urologic care of your patient. If you have any questions or concerns regarding treatment for the above conditions please do not hesitate to contact me. The office telephone contact is [phone].? ? ? This note is constructed in part using voice recognition software. While every effort has been made to ensure accuracy coin machine operator errors may have been included.? ? ? Yours sincerely,? ? ? Rashawn Motley MD? ? Telehealth Telehealth Location of provider rendering services: practice address Location of patient: address on file Patient Identification confirmed using: Name, : Yes Telehealth method: voice only Patient verbally consented to treatment: Yes Patient verbally consented to billing insurance company: Yes Patient informed of any privacy concerns related to visit: Yes Minutes spent on Phone/Video with Pt.: 15 Coding Level of Care Code Tele New Pt Level 3 (21244) Diagnoses Neurogenic bladder N31.9 Recurrent urinary tract infection N39.0 Multiple sclerosis G35 Voiding dysfunction N39.8 Vaginal atrophy N95.2
== END 2023-06-24 09:22 | disposition home or self-care (01) ==
LOC: HO.HUSH 08:32
PROVIDERS: PCP Internal Medicine; Visit Provider Urology
DX: N31.9 Neuromuscular dysfunction of bladder, unspecified (principal); N39.0 Urinary tract infection, site not specified; G35 Multiple sclerosis; N39.8 Other specified disorders of urinary system; N95.2 Postmenopausal atrophic vaginitis
CPT/HCPCS: 99213

== ENCOUNTER → 2023-06-24 08:32 | Outpatient (BNVA) | payer OTHER, SELFPAY | PROVIDERS: PCP Internal Medicine; Visit Provider Urology ==

== ENCOUNTER 2023-09-16 08:26 | Outpatient (AMB) | payer OTHER, SELFPAY ==
--- NOTE | 2023-09-16 08:30 | A.OFFVIS_ITS ---
Intake Intake Visit Reasons: Recurrent UTI's follow up Intake Note: Patient presents today for a follow-up on Recurrent UTI: Meds- Estradiol, Nitro, Tamsulosin & Tolterodine Allergies to Antibiotic- Sulfa Blood Thinner- None Watch Case Polisher Required: No Accompanied by: Self / Same As Patient Allergies Sulfa (Sulfonamide Antibiotics) [SULFA(SULFONAMIDE ANTIBIOTICS)] Allergy (Unknown, Verified 09/16/23 08:35) RASH, Chest pain HPI HPI Comments History of Present Illness Details Sharon is a 57-year-old female who presents today to the office for a follow-up. ? She is followed for recurrent urinary tract infections and OAB symptoms. h/o MS. She was last seen by me on 06/24/2023. She is prescribed Macrobid post sexual intercourse and detrol and tamsulosin for bladder symptoms. She states she is doing well. No UTI symptoms since last office visit. Review of charts: Retroperitoneum US results from 06/02/2023 revealed no calculi or focal parenchymal lesions. No hydronephrosis. 06/24/2023: Plan: 09/16/2023: Evaluation today?UA? Leukocy jamila: negative; blood: negative. 09/16/2023: Plan: Continue Macrobid post intercourse. Continue tamsulosin 0.4 mg for urinary symptoms of hesitency, and tolterodine 4 mg for urinary urgency. Follow-up in 1 year. [facility] Medical History Retention of urine Neurogenic bladder Hematuria Incomplete emptying of bladder Elevated blood pressure reading in office with diagnosis of hypertension Urgency incontinence Neurogenic bladder Fracture, fibula closed, shaft Surgical History History of surgery Social History Patient Tobacco Use Status: Never used Tobacco Review of Systems Const All systems reviewed & are unremarkable except as noted in HPI and below Reports no additional complaints Eyes Reports no additional complaints ENT Reports no additional complaints Card Denies dyspnea Resp Denies cough and Denies dyspnea GI Reports no additional complaints Reports no additional complaints Musc Reports no additional complaints Skin/Breast Denies rash and Denies unusual bruising Neuro Reports no additional complaints Psych Reports no additional complaints Endo Reports no additional complaints Rodrigo/Lymph Reports no additional complaints Aller/Immun Reports no additional complaints Physical Exam Const General: cooperative, healthy appearing and no acute distress Orientation/consciousness: patient oriented x3 HEENT Head: Yes normal to inspection, Yes normocephalic and Yes atraumatic Eyes Conjunctivae: conjunctivae normal Neck Neck: Yes normal visual inspection and Yes trachea midline Chest Chest palpation & inspection: normal inspection of the chest Resp Effort & Inspection: normal respiratory effort Cardio Rate: regular rate GI Inspection: Yes normal to inspection Skin General skin exam: no rashes or lesions noted Neuro General: patient oriented x3 Extrem General: No edema Psych Appearance: grossly normal Results AMB Urinalysis, Automated UA Leukoctes 0 Lyric/uL Last Edit by RITA Toney on 09/16/23 08:50 UA Nitrite Negative Last Edit by RITA Toney on 09/16/23 08:50 UA Urobilinogen 0.2 mg/dL Last Edit by RITA Toney on 09/16/23 08:5 0 UA Protein 15 mg/dL Last Edit by RITA Toney on 09/16/23 08:50 UA pH 6.0 Last Edit by RITA Toney on 09/16/23 08:50 UA Blood 0 Lenin/uL Last Edit by RITA Toney on 09/16/23 08:50 UA Specific [place]ant 1.030 Last Edit by RITA Toney on 09/16/23 08: 50 UA Ketone Negative Last Edit by RITA Toney on 09/16/23 08:50 UA Bilirubin 0 mg/dL Last Edit by RITA Toney on 09/16/23 08:50 UA Glucose 0 mg/dL Last Edit by RITA Toney on 09/16/23 08:50 Results Reviewed Results Reviewed: Laboratory Last Values Urine pH (Auto) 6.0 09/16/23 08:40 Specific [place] (Auto) 1.030 09/16/23 08:40 Urine Protein (Auto) 15 mg/dL 09/16/23 08:40 Glucose (UA)(Auto) 0 mg/dL 09/16/23 08:40 Urine Ketones (Auto) Negative 09/16/23 08:40 Urine Blood (Auto) 0 Lenin/uL 09/16/23 08:40 Urine Nitrite (Auto) Negative 09/16/23 08:40 Urine Bilirubin (Auto) 0 mg/dL 09/16/23 08:40 Urine Urobilinogen (Auto) 0.2 mg/dL 09/16/23 08:40 Leukocyte Esterase (Auto) 0 Lyric/uL 09/16/23 08:40 Date of Service: 06/02/23 EXAMINATION: US RETROPERITONEAL COMPLETE (RENAL) CLINICAL INFORMATION: Neuromuscular dysfunction of the bladder, unspecified. COMPARISON: Renal ultrasound 11/29/2018. FINDINGS: RIGHT KIDNEY: 11.5 x 6.0 x 5.8 cm (SAG x AP x TRV). The kidney is normal in size, contour, and echogenicity. Renal cortical thickness is normal. No calculi or focal parenchymal lesions. No hydronephrosis. LEFT KIDNEY: 11.9 x 5.7 x 5.0 cm (SAG x AP x TRV). The kidney is normal in size, contour, and echogenicity. Renal cortical thickness is normal. No calculi or focal parenchymal lesions. No hydronephrosis. BLADDER: Well distended and normal. Bilateral ureteral jets are demonstrated. Prevoid bladder volume is 299 mL. Postvoid bladder volume is 39 mL. IMPRESSION: Unremarkable examination. Assessment & Plan Assessment & Plan (1) Recurrent urinary tract infection: Code(s): N39.0 - Urinary tract infection, site not specified (2) Neurogenic bladder: Code(s): N31.9 - Neuromuscular dysfunction of bladder, unspecified (3) Multiple sclerosis: Code(s): G35 - Multiple sclerosis (4) Voiding dysfunction: Code(s): N39.8 - Other specified disorders of urinary system (5) Vaginal atrophy: Code(s): N95.2 - Postmenopausal atrophic vaginitis Plan Continue Macrobid post intercourse. Continue tamsulosin 0.4 mg, and tolterodine 4 mg. Follow-up in 1 year. Orders: Orders AMB Urinalysis Automated Today Z13.9 - Encounter for screening, unspecified Patient Instructions: The patient had an opportunity to ask questions regarding treatment plan. All questions were answered. Imaging, Laboratory studies and physical exam results were discussed and reviewed in detail. No major barriers to understanding were identified. The patient expressed understanding and agreement with the above treatment plan. The patient is aware they should contact our office by phone for worsening of their current condition or the appearance of new symptoms. Compliance is encouraged with any medications and followup testing that is ordered. It is a privilege to be allowed the opportunity to participate in the urologic care of your patient. If you have any questions or concerns regarding treatment for the above conditions please do not hesitate to contact me. The office telephone contact is [phone]. This note is constructed in part using voice recognition software. While every effort has been made to ensure accuracy rotary drum tanner errors may have been included. Yours sincerely, Rashawn Motley MD Coding Level of Care Code Est Pt Level 4 (21327) Diagnoses Recurrent urinary tract infection N39.0 Neurogenic bladder N31.9 Multiple sclerosis G35 Voiding dysfunction N39.8 Vaginal atrophy N95.2
== END 2023-09-16 09:20 | disposition home or self-care (01) ==
PROVIDERS: PCP Internal Medicine; Visit Provider Urology
DX: N39.0 Urinary tract infection, site not specified (principal); N31.9 Neuromuscular dysfunction of bladder, unspecified; G35 Multiple sclerosis; N39.8 Other specified disorders of urinary system; N95.2 Postmenopausal atrophic vaginitis; Z13.9 Encounter for screening, unspecified
CPT/HCPCS: 99214

== ENCOUNTER → 2023-09-16 08:26 | Outpatient (BNVA) | payer OTHER, SELFPAY | PROVIDERS: PCP Internal Medicine; Visit Provider Urology | DX: N39.0 Urinary tract infection, site not specified (principal); N31.9 Neuromuscular dysfunction of bladder, unspecified; N39.8 Other specified disorders of urinary system; N95.2 Postmenopausal atrophic vaginitis; G35 Multiple sclerosis; Z79.899 Other long term (current) drug therapy | CPT/HCPCS: 81003 ==

== ENCOUNTER 2024-09-14 10:06 | Outpatient (AMB) | payer OTHER, SELFPAY ==
--- NOTE | 2024-09-14 09:38 | A.OFFVIS_ITS ---
Intake Visit Reasons: 1y follow up Allergies Sulfa (Sulfonamide Antibiotics) [SULFA(SULFONAMIDE ANTIBIOTICS)] Allergy (Unknow n, Verified 09/16/23 08:35) RASH, Chest pain Medication List - Last Reconciled 09/14/24 by Rashawn Motley MD atorvastatin 10 mg PO DAILY estradiol (Yuvafem) 10 mcg vaginal 2XW ibuprofen 0 mg PO levothyroxine 25 mcg PO DAILY nitrofurantoin monohyd/m-cryst 100 mg (Macrobid) 100 mg PO .qhs tamsulosin 0.4 mg PO DAILY 90 days tolterodine ER 4 mg PO DAILY 90 days valacyclovir 500 mg PO DAILY HPI Comments Details: 09/14/24--Sharon is a 58-year-old female Com[place]bidy - h/o MS who presents today for a telehealth follow-up. Sharon states that in general she has been doing very well. She states that the prophylactic antibiotic post intercourse has worked well and she has not had a recurrent UTIs since she was last seen. She states that she had wrist surgery and was home for 2 months recuperating at that time she stopped taking her tamsulosin and Detrol and after a few weeks she stated s he was noticing that she was not emptying as well. Plan will be to continue all medications. Continue annual follow-up. She has been prescribed Vagifem by her forger helper and has been compliant with that medication also. ? She is followed for recurrent urinary tract infections and OAB symptoms. h/o MS. She was last seen by me on 06/24/2023. She is prescribed Macrobid post sexual intercourse and detrol and tamsulosin for bladder symptoms. She states she is doing well. No UTI symptoms since last office visit. Review of charts: Retroperitoneum US results from 06/02/2023 revealed no calculi or focal parenchymal lesions. No hydronephrosis. 06/24/2023: Plan: FORMERLY [facility] Medical History Retention of urine Neurogenic bladder Hematuria Incomplete emptying of bladder Elevated blood pressure reading in office with diagnosis of hypertension Urgency incontinence Neurogenic bladder Fracture, fibula closed, shaft Surgical History History of surgery Social History Patient Tobacco Use Status: Never used Tobacco Review of Systems Const All systems reviewed & are unremarkable except as noted in HPI and below Reports no additional complaints Eyes Reports no additional complaints ENT Reports no additional complaints Card Reports no additional complaints Resp Reports no additional complaints GI Reports no additional complaints Reports as per HPI Musc Reports no additional complaints Skin/Breast Reports system reviewed and no additional complaints, except as documented Neuro Reports no additional complaints Psych Reports no additional complaints Endo Reports no additional complaints Rodrigo/Lymph Reports no additional complaints Aller/Immun Reports no additional complaints Telehealth Telehealth Telehealth Platform: [facility] [employer] [facility] Location of provider rendering services: practice address Location of patient: address on file Patient Identification confirmed using: Name, : Yes Telehealth method: voice only Patient verbally consented to treatment: Yes Patient verbally consented to billing insurance company: Yes Patient informed of any privacy concerns related to visit: Yes Minutes spent on Phone/Video with Pt.: 16 Results Reviewed Results Reviewed: Date of Service: 06/02/23 EXAMINATION: US RETROPERITONEAL COMPLETE (RENAL) CLINICAL INFORMATION: Neuromuscular dysfunction of the bladder, unspecified. COMPARISON: Renal ultrasound 11/29/2018. FINDINGS: RIGHT KIDNEY: 11.5 x 6.0 x 5.8 cm (SAG x AP x TRV). The kidney is normal in size, contour, and echogenicity. Renal cortical thickness is normal. No calculi or focal parenchymal lesions. No hydronephrosis. LEFT KIDNEY: 11.9 x 5.7 x 5.0 cm (SAG x AP x TRV). The kidney is normal in size, contour, and echogenicity. Renal cortical thickness is normal. No calculi or focal parenchymal lesions. No hydronephrosis. BLADDER: Well distended and normal. Bilateral ureteral jets are demonstrated. Prevoid bladder volume is 299 mL. Postvoid bladder volume is 39 mL. IMPRESSION: Unremarkable examination. Assessment & Plan Assessment & Plan (1) Recurrent urinary tract infection: Code(s): N39.0 - Urinary tract infection, site not specified Category: Medical (2) Neurogenic bladder: Code(s): N31.9 - Neuromuscular dysfunction of bladder, unspecified Category: Medical (3) Multiple sclerosis: Code(s): G35 - Multiple sclerosis Category: Medical (4) Voiding dysfunction: Code(s): N39.8 - Other specified disorders of urinary system Category: Medical (5) Vaginal atrophy: Code(s): N95.2 - Postmenopausal atrophic vaginitis Category: Medical Plan Continue Macrobid post intercourse. Continue tamsulosin 0.4 mg, and tolterodine 4 mg. Follow-up in 1 year. Medications: Refilled tolterodine ER 4 mg PO DAILY 90 days 90 caps 3RF nitrofurantoin monohyd/m-cryst 100 mg (Macrobid) must administer with a meal/food 100 mg PO .qhs 30 caps 5RF use after intercourse as directed tamsulosin 0.4 mg PO DAILY 90 days 90 caps 3RF Patient Instructions: The patient had an opportunity to ask questions regarding treatment plan. The patient expressed understanding and agreement with the above treatment plan. The patient is aware they should contact our office by phone for worsening of their current condition or the appearance of new symptoms. Compliance is encouraged with any medications and followup testing that is ordered. It is a privilege to be allowed the opportunity to participate in the urologic care of your patient. If you have any questions or concerns regarding treatment for the above conditions please do not hesitate to contact me. The office telephone contact is [phone]. This note is constructed in part using voice recognition software. While every effort has been made to ensure accuracy chemistry quality control analyst errors may have been included. Yours sincerely, Rashawn Motley MD Coding Level of Care Code Tele Est Pt Level 4 (96424) Diagnoses Recurrent urinary tract infection N39.0 Neurogenic bladder N31.9 Multiple sclerosis G35 Voiding dysfunction N39.8 Vaginal atrophy N95.2
== END 2024-09-14 13:50 | disposition home or self-care (01) ==
LOC: HO.HUSH 10:06
PROVIDERS: PCP Internal Medicine; Visit Provider Urology
DX: N39.0 Urinary tract infection, site not specified (principal); N31.9 Neuromuscular dysfunction of bladder, unspecified; G35 Multiple sclerosis; N39.8 Other specified disorders of urinary system; N95.2 Postmenopausal atrophic vaginitis
CPT/HCPCS: 99214

== ENCOUNTER 2025-09-13 08:27 | Outpatient (AMB) | payer OTHER, SELFPAY ==
--- NOTE | 2025-09-13 08:37 | MHC.OFFVIS ---
Intake Visit Reasons: 1yr/follow up (set)UA+PVR) Intake Note: Patient presents for a 1yr/follow up Urology Medications: Tamsulosin, Tolterodine Blood Thinner:None Antibiotic Allergy:Sulfa PVR:0mL Collar Packer Required: No Accompanied by: Self / Same As Patient Allergies Sulfa (Sulfonamide Antibiotics) (SULFA(SULFONAMIDE ANTIBIOTICS)) Allergy (Unknown, Verified 09/13/25 08:39) RASH, Chest pain Medication List - Last Reconciled 09/13/25 by Rashawn Motley MD atorvastatin 10 mg PO DAILY ibuprofen 0 mg PO levothyroxine 25 mcg PO DAILY nitrofurantoin monohyd/m-cryst 100 mg (Macrobid) 100 mg PO .qhs tamsulosin 0.4 mg PO DAILY 90 days tolterodine ER 4 mg PO DAILY 90 days valacyclovir 500 mg PO DAILY HPI Comments Details: 09/13/2025--Sharon is a 59 year female history of multiple sclerosis she has been on tamsulosin and Detrol for voiding dysfunction. History of Present Illness The patient is a 59-year-old female with a history of multiple sclerosis presenting for follow-up of voiding dysfunction. She states that her current regimen of tamsulosin and tolterodine (Detrol) is working well. The patient reports she trialed stopping the medications for a couple of weeks but experienced the-sensation of incomplete bladder emptying, prompting her to resume them. The patient's primary care physician recently started her on hydrochlorothiazide for hypertension and rosuvastatin 20 mg for hypercholesterolemia. She also reports that the post-coital prophylactic medication nitrofurantoin she was prescribed is working well. Results - Urinalysis: Clear. leukocytes negative, blood negative Plan 1. Voiding Dysfunction - The patient reports that tamsulosin and tolterodine (Detrol) are effective for her symptoms. - Refills for tamsulosin and tolterodine will be provided. 2. Urological Surveillance - The patient will follow up 10 months. A kidney ultrasound will be performed before the next visit. 3. Recurrent UTI's - continue post-coital prophylactic medication nitrofurantoin, pt discontinues vaginal estradiol therapy. 09/14/24--Sharon is a 58-year-old female [place]bid[place] - h/o MS who presents today for a telehealth follow-up. Sharon states that in general she has been doing very well. She states that the prophylactic antibiotic post intercourse has worked well and she has not had a recurrent UTIs since she was last seen. She states that she had wrist surgery and was home for 2 months recuperating at that time she stopped taking her tamsulosin and Detrol and after a few weeks she stated she was noticing that she was not emptying as well. Plan will be to continue all medications. Continue annual follow-up. She has been prescribed Vagifem by her gang pusher and has been compliant with that medication also. ? She is followed for recurrent urinary tract infections and OAB symptoms. h/o . She was last seen by me on 06/24/2023. She is prescribed Macrobid post sexual intercourse and detrol and tamsulosin for bladder symptoms. She states she is doing well. No UTI symptoms since last office visit. Review of results: Retroperitoneum US results from 06/02/2023 revealed no calculi or focal parenchymal lesions. No hydronephrosis. 06/24/2023: Plan: [facility] Medical History Retention of urine Neurogenic bladder Hematuria Incomplete emptying of bladder Elevated blood pressure reading in office with diagnosis of hypertension Urgency incontinence Neurogenic bladder Fracture, fibula closed, shaft Surgical History History of surgery Social History Patient Tobacco Use Status: Never used Tobacco Review of Systems Const All systems reviewed & are unremarkable except as noted in HPI and below Reports no additional complaints Eyes Reports no additional complaints ENT Reports no additional complaints Card Reports no additional complaints Resp Reports no additional complaints GI Reports no additional complaints Reports as per HPI Musc Reports no additional complaints Skin/Breast Reports system reviewed and no additional complaints, except as documented Neuro Reports no additional complaints Psych Reports no additional complaints Endo Reports no additional complaints Rodrigo/Lymph Reports no additional complaints Aller/Immun Reports no additional complaints Results Reviewed Results Reviewed: Date of Service: 06/02/23 EXAMINATION: US RETROPERITONEAL COMPLETE (RENAL) CLINICAL INFORMATION: Neuromuscular dysfunction of the bladder, unspecified. COMPARISON: Renal ultrasound 11/29/2018. FINDINGS: RIGHT KIDNEY: 11.5 x 6.0 x 5.8 cm (SAG x AP x TRV). The kidney is normal in size, contour, and echogenicity. Renal cortical thickness is normal. No calculi or focal parenchymal lesions. No hydronephrosis. LEFT KIDNEY: 11.9 x 5.7 x 5.0 cm (SAG x AP x TRV). The kidney is normal in size, contour, and echogenicity. Renal cortical thickness is normal. No calculi or focal parenchymal lesions. No hydronephrosis. BLADDER: Well distended and normal. Bilateral ureteral jets are demonstrated. Prevoid bladder volume is 299 mL. Postvoid bladder volume is 39 mL. IMPRESSION: Unremarkable examination. Assessment & Plan Assessment & Plan (1) Recurrent urinary tract infection: Code(s): N39.0 - Urinary tract infection, site not specified Category: Medical (2) Neurogenic bladder: Code(s): N31.9 - Neuromuscular dysfunction of bladder, unspecified Category: Medical (3) Multiple sclerosis: Code(s): G35 - Multiple sclerosis Category: Medical (4) Voiding dysfunction: Code(s): N39.8 - Other specified disorders of urinary system Category: Medical (5) Vaginal atrophy: Code(s): N95.2 - Postmenopausal atrophic vaginitis Category: Medical Plan Plan 1. Voiding Dysfunction - The patient reports that tamsulosin and tolterodine (Detrol) are effective for her symptoms. - Refills for tamsulosin and tolterodine will be provided. 2. Urological Surveillance - The patient will follow up 10 months. A kidney ultrasound will be performed before the next visit. 3. Recurrent UTI's - continue post-coital prophylactic medication nitrofurantoin, pt discontinues vaginal estradiol therapy. Orders: Orders US renal BI 9 Months N31.9 - Neuromuscular dysfunction of bladder, unspecified, N39.0 - Urinary tract infection, site not specified, N39.8 - Other specified disorders of urinary system Medications: Refilled tamsulosin 0.4 mg PO DAILY 90 caps 3RF 90 days tolterodine ER 4 mg PO DAILY 90 caps 3RF 90 days nitrofurantoin monohyd/m-cryst 100 mg (Macrobid) must administer with a meal/food 100 mg PO .qhs 30 caps 5RF use after intercourse as directed Patient Instructions: The patient had an opportunity to ask questions regarding treatment plan. The patient expressed understanding and agreement with the above treatment plan. The patient is aware they should contact our office by phone for worsening of their current condition or the appearance of new symptoms. Compliance is encouraged with any medications and followup testing that is ordered. It is a privilege to be allowed the opportunity to participate in the urologic care of your patient. If you have any questions or concerns regarding treatment for the above conditions please do not hesitate to contact me. The office telephone contact is [phone]. This note is constructed in part using voice recognition software. While every effort has been made to ensure accuracy construction consultant errors may have been included. Yours sincerely, Rashawn Motley MD Scribe Plan - Not visible on output: Patient was informed and verbally consented to the use of an ambient scribe for clinic note documentation during this visit. Coding Level of Care Code Complex visit Add On G2211 Diagnoses Recurrent urinary tract infection N39.0 Neurogenic bladder N31.9 Multiple sclerosis G35 Voiding dysfunction N39.8 Vaginal atrophy N95.2
--- OUTSIDE RECORDS SUMMARY | 2025-09-13 09:03 | XMS_ITS | Encounter Summary ---
Author Organization [facility] Address [facility] [employer] [address] [address] Phone Care Team Providers Care Security Flex Utility Officer Name Role Phone Blayne Douglas MD Primary Care Provider + Encounter Details Date Type Department Care Team (Late st Contact Info) Description 09/07/2018 Procedure Pass OR Admitting Dept - Virtual Department [address] [place] [address] Social History Tobacco Use Types Packs/Day Years Used Date Smoking Tobacco: Never Smokeless Tobacco: Never Alcohol Use Standard Drinks/Week Comments Yes 2 (1 standard drink = 0.6 oz pur e alcohol) Comments Unknown Sex and Gender Information Value Date Recorded Sex Assigned at Not on file Legal Sex Female 10:34 PM EDT Gender Identity Not on file Sexual Orientation Not on file documented as of this encounter Plan of Treatment Not on file documented as of this encounter Visit Diagnoses Not on filedocumented in this encounter Care Teams Security Flex Utility Officer Relationship Specialty Start Date End Date Blayne Douglas MD [address] [place] [address] [address] [place] [address] PCP - General 07/29/17 documented as of this encounter Additional Source Comments The information contained in this document represents components of the legal health record. It is not the complete legal health record.[facility]
--- OUTSIDE RECORDS SUMMARY | 2025-09-13 09:03 | XMS_ITS | Clinical Summary ---
Author Organization [employer] [facility] Address [address] [place] [address] Care Team Providers Care Medical Office Technician Name Role Phone Pcp, No Primary Care Provider [phone] Social History Tobacco Use Types Packs/Day Years Used Date Smoking Tobacco: Never Assessed Comments Unknown Sex and Gender Information Value Date Recorded Sex Assigned at Not on file Legal Sex Female 9:46 AM EDT Gender Identity Not on file Sexual Orientation Not on file Plan of Treatment Not on file Medical Devices Not on file Insurance [facility] Care Teams Medical Office Technician Relationship Specialty Start Date End Date Pcp, No PCP - General Family Medicine 02/04/21
--- OUTSIDE RECORDS SUMMARY | 2025-09-13 09:04 | XMS_ITS | Clinical Summary ---
Author Organization [facility] Address [facility] [employer] [address] [address] Phone Care Team Providers Care Associate Web Developer Name Role Phone Blayne Douglas MD Primary Care Provider + Allergies Active Allergy Reactions Criticality Noted Date Comments Sulfa (Sulfonamide Antibiotics) 04/20/2017 Other reaction(s): CHEST TIGHTNESS Medications multivitamins capsule as directed Active cyanocobalamin (VITAMIN B-12) 500 MCG tablet 1 tablet Activ e atorvastatin (LIPITOR) 10 MG tablet Take 10 mg by mouth daily. 3 8 Active tamsulosin (FLOMAX) 0.4 mg Cap Take 0.4 mg by mouth daily. 6 8 Active valACYclovir (VALTREX) 500 MG tablet Take 500 mg by mouth daily as needed. 2 8 Active glatiramer (COPAXONE) 40 mg/mL Syrg subcutaneous syringe Inject 40 mg under the skin 3 (three) times a week. Active ibuprofen (ADVIL,MOTRIN) 600 MG tablet Take 600 mg by mouth every 6 (six) hours as needed for pain (specific location in comments). Active calcium carbonate-vitamin D3 1,250 mg (500 mg elemental)-400 units Tab Take 1 tablet by mouth daily. Active baclofen (LIORESAL) 10 MG tablet Take 10 mg by mouth 2 (two) times a day. Active oxyCODONE 5 MG immediate release tablet Take 1-2 tablets (5-10 mg total) by mouth every 4 (four) hours as needed for moderate pain. Pt. may request partial fill 10 tablet 8 Active levothyroxine (SYNTHROID,LEVOTH ROID) 25 MCG tablet Take 25 mcg by mouth daily. 3 8 Active Active Problems Problem Noted Date Diagnosed Date Primary localized osteoarthrosis of right lower leg 08/18/2017 De Quervain's disease (tenosynovitis) Family History Relation Status Comments Brother Alive Father Mother Alive Sister Alive Social History Tobacco Use Types Packs/Day Years Used Date Smoking Tobacco: Never Smokeless Tobacco: Never Alcohol Use Standard Drinks/Week Comments Yes 2 (1 standard drink = 0.6 oz pur e alcohol) Education Answer Date Recorded Are you interested in more education? Not on nito e 02/05/2023 Are you concerned about learning? Not on file 02/05/2023 No 02/05/2023 No 02/05/2023 Digital Access Answer Date Recorded No 03/06/2023 No 03/06/2023 Reliable internet access at home? Not on file 03/06/2023 Device with a working camera? Not on file Comments Unknown Sex and Gender Information Value Date Recorded Sex Assigned at Not on file Legal Sex Female 10:34 PM EDT Gender Identity Not on file Sexual Orientation Not on file Last Filed Vital Signs Vital Sign Reading Time Taken Comments Blood Pressure 107/60 09/07/2018 12:39 PM EST Pulse 87 09/07/2018 9:29 AM EST Temperature 36.5 C (97.7 F) 09/07/2018 12:39 PM EST Respiratory Rate 14 09/07/2018 12:45 PM EST Oxygen Saturation 99% 09/07/2018 12:39 PM EST Inhaled Oxygen Concentration - - Weight 72.6 kg (160 lb) 09/20/2018 8:36 AM EST Height 167.6 cm (5' 6 ) 09/20/2018 8:36 AM EST Body Mass Index 25.82 09/20/2018 8:36 AM EST Plan of Treatment Health Maintenance Due Date Last Done Comments Adult Td,Tdap Booster 1963 LIPID PANEL 1963 TSH LEVEL 1963 DEPRESSION SCREENING 1975 HEPATITIS C SCREENING 12/14/1981 HIV ONE-TIME SCREENING (18-6 5 YEARS) 12/14/1981 PAP SMEAR 12/14/1984 MAMMOGRAM 2003 COLOGUARD 12/14/2008 COLONOSCOPY 12/14/2008 COLORECTAL CANCER SCREENING 12/14/2008 FIT TEST 12/14/2008 FOBT 12/14/2008 SIGMOIDOSCOPY 12/14/2008 VIRTUAL COLONOSCOPY 12/14/2008 PNEUMOCOCCAL VACCINES (50+ y ears) (1 of 1 - PCV) 12/14/2013 ZOSTER VACCINES (1 of 2) 12/14/2013 INFLUENZA VACCINE (#1) 2025 COVID-19 VACCINE (2 - 2024-2 6 season) 2025 12/29/2020 RSV VACCINE (1 - 1-dose 75+ series) 12/14/2038 SMOKING STATUS SCREENING (On ce After 26 Yrs) Completed 11/22/2018 HEPATITIS A VACCINES Aged Out No long er eligible based on patient's age to complete this topic HIB VACCINES Aged Out No longer eligi ble based on patient's age to complete this topic MENINGOCOCCAL VACCINES (ACWY) Aged Out No longer eligible based on patient's age to complete this topic MENINGOCOCCAL VACCINES (B) Aged Out N o longer eligible based on patient's age to complete this topic Medical Devices Not on file Insurance [facility] [place] [address] Advance Directives For more information, please contact: [phone] (9AM - 5PM [facility], Wednesday-Wednesday) * Full Code (Presumed) (Latest Code Status on File) Date Activated Date Inactivated Comments 09/07/2018 9:07 AM 09/07/2018 3:13 PM Care Teams Associate Web Developer Relationship Specialty Start Date End Date Blayne Douglas MD [address] [facility] [address] [place] [address] PCP - General 07/29/17 Additional Source Comments The information contained in this document represents components of the legal health record. It is not the complete legal health record.[facility]
--- OUTSIDE RECORDS SUMMARY | 2025-09-13 09:05 | XMS_ITS | Encounter Summary ---
Author Organization [facility] Address [address] [place] [phone] Phone Care Team Providers Care Shuttler Car Name Role Phone Blayne Douglas MD Primary Care Provider + Encounter Details Date Type Department Care Team (Late st Contact Info) Description 07/22/2018 Prep for Surgery [facility] [address] [place] [id number] Darlyn Luz MD [address] [place] [address] Orthopedics & Sports Medicine, [facility] [place] [address] [email or web address] Social History Tobacco Use Types Packs/Day Years Used Date Smoking Tobacco: Never Smokeless Tobacco: Never Alcohol Use Standard Drinks/Week Comments Yes 1 (1 standard drink = 0.6 oz pur e alcohol) vodka occasionally Comments Unknown Sex and Gender Information Value Date Recorded Sex Assigned at Not on file Legal Sex Female 10:34 PM EDT Gender Identity Not on file Sexual Orientation Not on file documented as of this encounter Plan of Treatment Not on file documented as of this encounter Visit Diagnoses Not on filedocumented in this encounter Care Teams Shuttler Car Relationship Specialty Start Date End Date Blayne Douglas MD [address] [place] [address] [address] [place] [id number] (work) PCP - General 07/29/17 documented as of this encounter Additional Source Comments The information contained in this document represents components of the legal health record. It is not the complete legal health record.[facility]
== END 2025-09-13 09:05 | disposition home or self-care (01) ==
LOC: HO.HUSH 08:28
PROVIDERS: PCP Internal Medicine; Visit Provider Urology
DX: N39.0 Urinary tract infection, site not specified (principal); N31.9 Neuromuscular dysfunction of bladder, unspecified; G35.D Multiple sclerosis, unspecified; N39.8 Other specified disorders of urinary system; N95.2 Postmenopausal atrophic vaginitis; R33.9 Retention of urine, unspecified
CPT/HCPCS: 99214; G2211

== ENCOUNTER → 2025-09-13 08:27 | Outpatient (BNVA) | payer OTHER, SELFPAY | PROVIDERS: PCP Internal Medicine; Visit Provider Urology | DX: N39.0 Urinary tract infection, site not specified (principal); N31.9 Neuromuscular dysfunction of bladder, unspecified; G35.D Multiple sclerosis, unspecified; N39.8 Other specified disorders of urinary system; N95.2 Postmenopausal atrophic vaginitis | CPT/HCPCS: 51798; 81003 ==